=== PATIENT | male | born 1985 | race Caucasian/White ===

== ENCOUNTER 2018-11-24 13:01 | Outpatient (CLI) | payer MEDICAID ==
[2018-11-24 18:56] LABS: BASOPHILS % (AUTO) 0.4 %; EOSINOPHILS # (AUTO) 0.1 10^3/uL (0.0-0.7); EOSINOPHILS % (AUTO) 0.8 %; HGB - HEMOGLOBIN 14.4 g/dL (14.0-18.0); LYMPHOCYTES # (AUTO) 1.3 10^3/uL (1.5-3.5); MEAN CORPUSCULAR HEMOGLOBIN 27.5 pg (27.0-31.0); MEAN CORPUSCULAR HGB CONC 32.5 g/dL (32.0-36.0); MEAN CORPUSCULAR VOLUME 84.6 fL (80.0-94.0); MEAN PLATELET VOLUME 8.3 fL (7.4-11.4); MONOCYTES # (AUTO) 0.4 10^3/uL (0.0-1.0); MONOCYTES % (AUTO) 5.9 %; NEUTROPHILS # (AUTO) 5.2 10^3/uL (1.5-6.6); NEUTROPHILS % (AUTO) 73.9 %; PLT - PLATELET COUNT 275 10^3/uL (130-450); RED BLOOD COUNT 5.22 10^6/uL (4.70-6.10); RED CELL DISTRIBUTION WIDTH 15.5 % (12.0-15.0)
[2018-11-24 19:13] LABS: ALBUMIN 4.8 g/dL (3.2-5.5); ALBUMIN/GLOBULIN RATIO 1.7 (1.0-2.2); ALKALINE PHOSPHATASE 43 IU/L (42-121); ALT ALANINE AMINOTRANSFERASE 28 IU/L (10-60); AST ASPARTATE AMINOTRANSFERASE 15 IU/L (10-42); BILIRUBIN,TOTAL 0.9 mg/dL (0.2-1.0); BUN - BLOOD UREA NITROGEN 9 mg/dL (6-20); CALCIUM 9.2 mg/dL (8.5-10.3); CARBON DIOXIDE - CO2 27 mmol/L (21-32); CHLORIDE 101 mmol/L (101-111); CHOL/HDL RATIO 4.2 (<5.0); CHOLESTEROL 157 mg/dL; CREATININE 0.6 mg/dL (0.6-1.2); GFR - MDRD 154 (>89); GLUCOSE 101 mg/dL (70-100); HDL CHOLESTEROL 37 mg/dL; LDL CHOLESTEROL,CALCULATED 98 mg/dL; LDL/HDL RATIO 2.6 (<3.6); SODIUM 138 mmol/L (135-145); TOTAL PROTEIN 7.6 g/dL (6.7-8.2); VLDL CHOLESTEROL 22 mg/dL
== END 2018-11-24 23:59 | disposition home or self-care (01) ==
LOC: LAB.N 13:01
PROVIDERS: ATTEND Nurse Practitioner Gerontology
DX: Z13.9 Encounter for screening, unspecified (principal); E66.9 Obesity, unspecified
CPT/HCPCS: 36415; 80053; 80061; 83721; 84443; 85025

== ENCOUNTER 2019-12-23 12:22 | Outpatient (CLI) | payer SELFPAY ==
[2019-12-23 18:21] LABS: BASOPHILS % (AUTO) 0.3 %; EOSINOPHILS # (AUTO) 0.1 10^3/uL (0.0-0.7); EOSINOPHILS % (AUTO) 0.9 %; HGB - HEMOGLOBIN 14.3 g/dL (14.0-18.0); LYMPHOCYTES % (AUTO) 15.9 %; MEAN CORPUSCULAR HEMOGLOBIN 28.4 pg (27.0-31.0); MEAN CORPUSCULAR HGB CONC 32.4 g/dL (32.0-36.0); MEAN CORPUSCULAR VOLUME 87.7 fL (80.0-94.0); MEAN PLATELET VOLUME 10.4 fL (7.4-11.4); MONOCYTES # (AUTO) 0.3 10^3/uL (0.0-1.0); MONOCYTES % (AUTO) 5.2 %; NEUTROPHILS # (AUTO) 4.9 10^3/uL (1.5-6.6); NEUTROPHILS % (AUTO) 77.2 %; PLT - PLATELET COUNT 241 10^3/uL (130-450); RED BLOOD COUNT 5.04 10^6/uL (4.70-6.10); RED CELL DISTRIBUTION WIDTH 14.8 % (12.0-15.0); WHITE BLOOD COUNT 6.3 x10^3/uL (4.8-10.8)
[2019-12-23 18:55] LABS: ALBUMIN 4.7 g/dL (3.2-5.5); ALBUMIN/GLOBULIN RATIO 1.6 (1.0-2.2); ALKALINE PHOSPHATASE 42 IU/L (42-121); ALT ALANINE AMINOTRANSFERASE 32 IU/L (10-60); AST ASPARTATE AMINOTRANSFERASE 19 IU/L (10-42); BILIRUBIN,TOTAL 0.8 mg/dL (0.2-1.0); BUN - BLOOD UREA NITROGEN 10 mg/dL (6-20); CALCIUM 9.2 mg/dL (8.5-10.3); CARBON DIOXIDE - CO2 26 mmol/L (21-32); CHLORIDE 103 mmol/L (101-111); CHOL/HDL RATIO 3.5 (<5.0); CHOLESTEROL 151 mg/dL; CREATININE 0.6 mg/dL (0.6-1.2); GFR - MDRD 152 (>89); GLUCOSE 113 mg/dL (70-100); HDL CHOLESTEROL 43 mg/dL; LDL CHOLESTEROL,CALCULATED 95 mg/dL; LDL/HDL RATIO 2.2 (<3.6); SODIUM 138 mmol/L (135-145); TOTAL PROTEIN 7.6 g/dL (6.7-8.2); VLDL CHOLESTEROL 13 mg/dL
== END 2019-12-23 23:59 | disposition home or self-care (01) ==
LOC: LAB.N 12:22
PROVIDERS: ATTEND Nurse Practitioner Gerontology
DX: E66.9 Obesity, unspecified (principal); I10 Essential (primary) hypertension; Z13.9 Encounter for screening, unspecified
CPT/HCPCS: 36415; 80053; 80061; 83721; 85025